=== PATIENT | female | born 1960 | race Caucasian/White ===

== ENCOUNTER 2019-03-07 09:18 | Emergency (ER) | payer BC, OTHER ==
[2019-03-07] MEDS ORDERED: ASPIRIN 81 MG TABLET, CHEWABLE PO ONE (09:58)
--- NOTE | 2019-03-07 10:00 | ER Document Report ---
ED Medical Screen (RME) - General Chief Complaint: Chest Pain Stated Complaint: CHEST PAIN Time Seen by Provider: 03/07/19 09:56 Primary Care Provider: JACQUELIN BYNUM MD [Primary Care Provider] - Follow up as needed Mode of Arrival: Ambulatory Information source: Patient Notes: 58-year-old female presents to ED for complaint of chest pain. She states she had a colonoscopy a week ago and on the EKG that she had preop there was something abnormal. She states she has a history of a mitral valve prolapse but they told her there was something more than that. She states she had chest pain intermittently since then. She went to her primary care doctor on Sunday and had some blood work. They scheduled her for a cardiology appointment but that was not until next month the . She states she was not able to get an appointment before that. She states she has had intermittent chest pain and palpitations. She states sometimes her heartbeat goes down to the 40s and sometimes goes fast. 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 Patient is alert oriented respirations regular and unlabored. Pulse does sound irregularly to apical pulse. Lung sounds are clear. I have greeted and performed a rapid initial assessment of this patient. A comprehensive ED assessment and evaluation of the patient, analysis of test results and completion of medical decision making process will be conducted by an additional ED providers. Dictation of this chart was performed using voice recognition software; therefore, there may be some unintended grammatical errors. TRAVEL OUTSIDE OF THE [place] IN LAST 30 DAYS: No - Related Data Allergies/Adverse Reactions: Iodine and Iodide Containing Produc Allergy (Verified 03/07/19 09:53) Physical Exam - Vital signs Vitals: Temp Pulse Resp BP Pulse Ox 98.2 F 73 16 144/93 H 98 03/07/19 09:32 03/07/19 09:32 03/07/19 09:32 03/07/19 09:32 03/07/19 09:32 Course - Vital Signs Vital signs: Temp Pulse Resp BP Pulse Ox 98.2 F 73 16 144/93 H 98 03/07/19 09:32 03/07/19 09:32 03/07/19 09:32 03/07/19 09:32 03/07/19 09:32 Doctor's Discharge - Discharge Referrals: JACQUELIN BYNUM MD [Primary Care Provider] - Follow up as needed
[2019-03-07 10:28] LABS: APPEARANCE,URINE CLEAR; BILIRUBIN,URINE NEGATIVE (NEGATIVE); COLOR,URINE STRAW; GLUCOSE, URINE NEGATIVE (NEGATIVE); KETONES,URINE NEGATIVE (NEGATIVE); LEUKOCYTE ESTERASE,URINE NEGATIVE (NEGATIVE); NITRITE,URINE NEGATIVE (NEGATIVE); PROTEIN,URINE NEGATIVE (NEGATIVE); URINE SPECIFIC GRAVITY 1.004; UROBILINOGEN,URINE NEGATIVE mg/dL (<2.0)
[2019-03-07 10:30] LABS: INTERNATIONAL RATION (INR) 0.89
[2019-03-07 10:31] LABS: PARTIAL THROMBOPLASTIN TIME 24.4 SEC (23.5-35.8)
[2019-03-07 10:36] LABS: ABSOLUTE EOSINOPHILS # (AUTO) 0.1 10^3/uL (0.0-0.6); ABSOLUTE MONOCYTES (AUTO) 0.5 10^3/uL (0.1-1.4); ABSOLUTE NEUT (AUTO) 2.4 10^3/uL (1.7-8.2); BASOPHILS % (AUTO) 0.6 % (0-2); EOSINOPHILS % (AUTO) 2.6 % (0-6); HEMATOCRIT 42.9 % (36.0-47.0); HEMOGLOBIN 14.6 g/dL (12.0-15.5); LYMPHOCYTES % (AUTO) 39.6 % (13-45); MEAN CORPUSCULAR HEMOGLOBIN 31.8 pg (27.0-33.4); MEAN CORPUSCULAR HGB CONC 34.1 g/dL (32.0-36.0); MEAN CORPUSCULAR VOLUME 93 fl (80-97); MONOCYTES % (AUTO) 10.2 % (3-13); PLATELET COUNT 201 10^3/uL (150-450); RED CELL DISTRIBUTION WIDTH 13.1 % (11.5-14.0); TOTAL CELLS COUNTED % (AUTO) 100 %; WHITE BLOOD COUNT 5.2 10^3/uL (4.0-10.5)
[2019-03-07 10:41] LABS: ALANINE AMINOTRANSFERASE 50 U/L (9-52); ALBUMIN 4.8 g/dL (3.5-5.0); ALKALINE PHOSPHATASE 60 U/L (38-126); ANION GAP 7 (5-19); ASPARTATE AMINO TRANSFERASE 36 U/L (14-36); BILIRUBIN,DIRECT 0.2 mg/dL (0.0-0.4); BILIRUBIN,TOTAL 0.7 mg/dL (0.2-1.3); BLOOD UREA NITROGEN 16 mg/dL (7-20); CALCIUM 10.1 mg/dL (8.4-10.2); CARBON DIOXIDE 27 mmol/L (22-30); CHLORIDE 107 mmol/L (98-107); CREATINE KINASE 113 U/L (30-135); GLUCOSE 95 mg/dL (75-110); POTASSIUM 5.1 mmol/L (3.6-5.0); SODIUM 141.3 mmol/L (137-145); TOTAL PROTEIN 7.4 g/dL (6.3-8.2)
--- NOTE | 2019-03-07 10:49 | RADIOLOGY REPORT (SQ) ---
EXAM DESCRIPTION: CHEST 2 VIEWS COMPLETED DATE/TIME: 03/07/2019 10:38 am REASON FOR STUDY: chest pain palpitation COMPARISON: None. EXAM PARAMETERS: NUMBER OF VIEWS: two views TECHNIQUE: Digital Frontal and Lateral radiographic views of the chest acquired. RADIATION DOSE: NA LIMITATIONS: none FINDINGS: LUNGS AND PLEURA: No opacities, masses or pneumothorax. No pleural effusion. MEDIASTINUM AND HILAR STRUCTURES: No masses or contour abnormalities. HEART AND VASCULAR STRUCTURES: Heart normal size. No evidence for failure. BONES: No acute findings. HARDWARE: None in the chest. OTHER: No other significant finding. IMPRESSION: NO ACUTE RADIOGRAPHIC FINDING IN THE CHEST. TECHNICAL DOCUMENTATION: JOB ID: [id number] [employer] DEPT.- All Rights Reserved Reading location - IP/workstation name: [email or web address]
[2019-03-07 10:54] LABS: CREATINE KINASE MB 3.96 ng/mL (<4.55)
[2019-03-07 11:03] LABS: TROPONIN I < 0.012 ng/mL
[2019-03-07 12:21] LABS: FREE T3 3.42 pg/mL (2.77-5.27); FREE T4 (FREE THYROXINE) 0.85 ng/dL (0.78-2.19)
[2019-03-07 12:35] LABS: THYROID STIMULATING HORMONE 3.01 uIU/mL (0.47-4.68)
--- NOTE | 2019-03-07 13:31 | ER Document Report ---
Entered by ROSEMARIE HUGHES SCRIBE 03/07/19 1214 Acting as scribe for:LUCHO BUSTOS MD ED Cardiac - General Chief Complaint: Chest Pain Stated Complaint: CHEST PAIN Time Seen by Provider: 03/07/19 09:56 Primary Care Provider: JACQUELIN BYNUM MD [NO LOCAL MD] - 03/10/19 Mode of Arrival: Ambulatory Information source: Patient Notes: Patient is a 58-year-old female presented to the emergency department complaining of chest pain with associated exhaustion vomiting patient states that she had a colonoscopy about a week ago that she has been constantly exhausted since the procedure. Patient states she has had sharp pain behind the left breast lasting for a few seconds without any radiation intermittently for several years however this week, however this week it has become much more intense. When she had the colonoscopy, they noted an irregular heartbeat and referred her to her primary care. Patient states that on 03/03 her primary care physician obtained an ECG which she was told that it does not look normal but did not specify. Patient states that this morning she also "had a fainty feeling". The patient does see a certified personal finance counselor at [facility] named Dr. Sanchez. TRAVEL OUTSIDE OF THE [place] IN LAST 30 DAYS: No - Related Data Allergies/Adverse Reactions: Iodine and Iodide Containing Produc Allergy (Verified 03/07/19 09:53) Past Medical History - General Information source: Patient - Social History Smoking Status: Unknown if Ever Smoked Cigarette use (# per day): No Chew tobacco use (# tins/day): No Smoking Education Provided: No Frequency of alcohol use: Heavy Drug Abuse: None Lives with: Family Family History: Reviewed & Not Pertinent Patient has suicidal ideation: No Patient has homicidal ideation: No Neurological Medical History: Reports: Hx Migraine Renal/ Medical History: Reports: Hx Kidney Stones Past Surgical History: Reports: Hx Section, Hx Gynecologic Surgery - d&C, Hx Oral Surgery, Hx Orthopedic Surgery - right wrist, back, rods screws fusion, Hx Tonsillectomy, Hx Tubal Ligation Review of Systems - Review of Systems Constitutional: No symptoms reported EENT: No symptoms reported Cardiovascular: See HPI, Chest pain - Sharp pain behind the left breast Respiratory: No symptoms reported Gastrointestinal: No symptoms reported Genitourinary: No symptoms reported Female Genitourinary: No symptoms reported Musculoskeletal: No symptoms reported Skin: No symptoms reported Hematologic/Lymphatic: No symptoms reported Neurological/Psychological: No symptoms reported -: Yes All other systems reviewed and negative Physical Exam - Vital signs Vitals: Temp Pulse Resp BP Pulse Ox 98.2 F 73 16 144/93 H 98 03/07/19 09:32 03/07/19 09:32 03/07/19 09:32 03/07/19 09:32 03/07/19 09:32 - Notes Notes: Physical Exam: General: Alert, depressed. HEENT: Normocephalic. Atraumatic. PERRL. Extraocular movements intact. Oropharynx clear. Neck: Supple. Non-tender. Respiratory: No respiratory distress. Clear and equal breath sounds bilaterally. Cardiovascular: Regular rate with occasional irregular beat. Split S2 with no murmur. Abdominal: Normal Inspection. Non-tender. No distension. Normal Bowel Sounds. Back: Non-tender. No deformity or step off. Extremities: Moves all four extremities. Upper extremities: Normal inspection. Normal ROM. Lower extremities: Normal inspection. No edema. Normal ROM. Neurological: Normal cognition. AAOx4. Normal speech. Psychological: Normal affect. Normal Mood. Skin: Warm. Dry. Normal color. Course - Re-evaluation Re-evalutation: 03/07/19 13:51 The patient's initial EKG showed her to be and a ventricular bigeminy rate for the entire EKG. While always seeing her on physical exam, she was only having an occasional PVC. Later when I had a olericulture teacher student go auscultate her heart, he reported the monitor showed her to go into some runs of ventricular bigeminy that did not last very long. 03/07/19 14:17 I did discuss this case with Dr. Wolff who did her echo here in 2013. He agrees that the chest pain is not cardiac. The palpitations are due to the PVCs. He does not think the mitral valve prolapse is contributing to the PVCs or the bigeminal rhythm. He does think that she should follow-up with [facility] as planned. Her lab work is all unremarkable, including normal thyroid function studies, chest x-ray is perfectly clear, there is no explanation for her exhaustion for the past week. - Vital Signs Vital signs: Temp Pulse Resp BP Pulse Ox 98.2 F 73 18 111/73 94 06/28/19 09:32 03/07/19 09:32 03/07/19 14:42 03/07/19 14:43 03/07/19 14:42 - Laboratory Result Diagrams: 03/07/19 10:05 03/07/19 10:05 Laboratory results interpreted by me: 03/07/19 10:05 Potassium 5.1 H - Diagnostic Test Radiology reviewed: Image reviewed, Reports reviewed - Chest x-ray is unremarkable - EKG Interpretation by Me EKG shows normal: Sinus rhythm, Cameron, Intervals, QRS Complexes. abnormal: ST-T Waves - Specific inferior T abnormalities Rate: Tachycardia - 106 Rhythm: Other - Ventricular bigeminy Cameron/QRS: Left axis deviation P Waves: LAE Discharge - Discharge Clinical Impression: Palpitations, Frequent PVCs Fatigue Qualifiers: Fatigue type: unspecified Qualified Code(s): R53.83 - Other fatigue Condition: Stable Disposition: HOME, SELF-CARE Additional Instructions: Chest Pain of Unclear Cause: The exact cause of your chest pain isn't clear. Fortunately, there is no evidence of a dangerous medical condition. Further testing may be required to find the source of the pain. Most often, we find that this pain is coming from the chest wall -- the muscles or rib joints in the chest. But chest pain can come from the lung and lung lining, the esophagus, the heart valves or heart lining, and even the stomach or gallbladder. Rest. Eat lightly until the pain is gone. We may prescribe medicine for pain and inflammation. You should call the physician immediately if the pain radiates to the shoulder, jaw or arms; if you start to run a fever or develop a cough; or if you develop shortness of breath, or other new or alarming symptoms. Palpitations (Irregular/Rapid Heartrate): Irregular or rapid heartbeat is called "palpitation." To diagnose the cause of palpitation, we have to "catch it in the act" with an EKG. Sinus Tachycardia: This is a rapid (but NORMAL) rhythm that can be due to fever, pain, anxiety, lack of sleep, over-exertion, or drugs. Cold medications, caffeine, and diet pills are particularly likely to cause tachycardia. Usually, all that's required is rest, reassurance, and avoiding caffeine, alcohol, nicotine, and unnecessary medicines. Paroxysmal Atrial Tachycardia (PAT): This abnormally rapid heartbeat is caused by a "short circuit" in the electrical system of the heart. It is not dangerous, unless other heart disease is present. These attacks of PAT may occur occasionally for years. Medication is available for treatment. Paroxysmal Atrial Fibrillation or Atrial Flutter: This is irregular electrical activity in the upper heart chamber. These abnormal rhythms often occur with valve disease or in hearts damaged by hardening of the arteries. These rhythms usually require further testing, for example a cardiac echo. Premature Beats: Extra beats occur more commonly after caffeine, nicotine, alcohol, cold pills, diet pills. Emotional stress or fatigue also provoke them. Extra beats are only dangerous when heart disease is present. They usually need no treatment. If they're frequent, or if evidence of heart disease develops, medication can be given to suppress them. If we were unable to "catch" the palpitations on EKG, you should try to get an EKG immediately if the symptoms begin again. Contact the physician at once if you develop persistent lightheadedness, shortness of breath, chest pain, or swelling of the ankles. Fatigue: Fatigue can be caused by many medical and emotional problems. Fatigue can be an early symptom of infection, or can be caused by chronic infection. It can be a symptom of metabolic diseases like diabetes, hypothyroidism, or anemia. It can result from sleep problems such as sleep apnea. Fatigue can be a symptom of depression. Overuse of alcohol or caffeine can cause fatigue. Many drugs can cause fatigue, either as a side effect or when withdrawing from the drug. Until the evaluation is complete, try to keep up your normal activities. Get regular sleep hours, but avoid oversleeping. Try to get regular exercise. Eliminate alcohol, caffeine, and any unnecessary drugs, herbs, or medicines (discuss any changes in prescription medicines with your doctor). Contact the doctor if there is any change for the worse. There is no clear explanation for the chest pain you are having. Palpitations you are feeling are due to premature ventricular contractions which are a benign condition. Your certified personal finance counselor may decide to put you on medication for this if they become symptomatic. There is no clear explanation for the fatigue or exhaustion you have been feeling this past week. Your lab work, including thyroid function studies, and cardiac enzymes were all completely normal. Your chest x-ray was normal. There is no indication that your mitral valve is causing any problems at this time. You should try to get plenty of rest and sleep. Follow-up with your primary care provider Sunday if you still feel the same. Be sure and follow-up with Dr. SORENSEN in [place] as planned. RETURN TO THE EMERGENCY ROOM IF ANY NEW OR WORSENING SYMPTOMS. Referrals: JACQUELIN BYNUM MD [NO LOCAL MD] - 03/10/19 Scribe Attestation: 03/07/19 14:22 I personally performed the services described in the documentation, reviewed and edited the documentation which was dictated to the scribe in my presence, and it accurately records my words and actions. I personally performed the services described in the documentation, reviewed and edited the documentation which was dictated to the scribe in my presence, and it accurately records my words and actions.
[2019-03-07 15:37] VITALS: BP 111/73
--- NOTE | 2019-03-09 00:24 | EKG REPORT ---
SEVERITY:- ABNORMAL ECG - SINUS TACHYCARDIA VENTRICULAR BIGEMINY PROBABLE LEFT ATRIAL ABNORMALITY LEFT AXIS DEVIATION NONSPECIFIC T ABNORMALITIES, INFERIOR LEADS : Confirmed by: Kailee Moulton 09-Mar-2019 00:23:51
== END 2019-03-07 14:43 | disposition home or self-care (01) ==
LOC: ER 09:18
DX: I49.3 Ventricular premature depolarization (principal); R00.2 Palpitations; R07.9 Chest pain, unspecified; R53.83 Other fatigue; R11.10 Vomiting, unspecified; Z87.442 Personal history of urinary calculi
CPT/HCPCS: 36415; 71046; 80053; 81001; 82550; 82553; 84439; 84443; 84481; 84484; 85025; 85610; 85730; 93005; 93010; 99285